=== PATIENT | male | born 1990 | race Two or more races ===

== ENCOUNTER 2023-06-29 02:29 | Emergency (ER) | payer OTHER ==
[~2023-06-29] VITALS: Ht 167.6 cm; Wt 77.1 kg
[2023-06-29 02:37] VITALS: TEMP 98
[2023-06-29 04:04] VITALS: BP 134/85; O2SAT 98
== END 2023-06-29 04:05 ==
LOC: ER 02:31
DX: F10.10 Alcohol abuse, uncomplicated (principal); E11.9 Type 2 diabetes mellitus without complications; Y90.9 Presence of alcohol in blood, level not specified
CPT/HCPCS: 82962-TC